=== PATIENT | female | born 2000 | race Caucasian/White ===

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

== ENCOUNTER 2022-04-18 10:29 | Emergency (ER) | payer OTHER ==
[2022-04-18 10:44] VITALS: BP 145/88
[2022-04-18 10:55] LABS: RAPID STREP SCREEN Negative (Negative)
--- NOTE | 2022-04-18 10:58 | ED Physician Documentation ---
PD HPI URI - Stated complaint Stated Complaint: THROAT PX - Chief complaint Chief Complaint: Heent - History obtained from History obtained from: Patient - History of Present Illness Timing - onset: How many weeks ago (has had congestion and cough with fevers for past 2 weeks and Dx with COVID. She was improving with much less symptoms the past 4-5 days, and now abruptly worsening swelling, soreness, exudate of tonsils.) Timing duration: Days Timing details: Gradual onset Associated symptoms: Fever, Nasal congestion, Sore throat, Swollen nodes. No: Ear pain, Hemoptysis, Chest pain Contributing factors: No: Sick contact Similar symptoms before: Diagnosis (prior strep tonsils years ago, not recent.) Review of Systems Constitutional: reports: Fever, Myalgias Nose: reports: Rhinorrhea / runny nose, Congestion (improving since 2 weeks ago) Throat: reports: Sore throat, Swollen tonsils (the past 2 days worsening) Respiratory: reports: Cough (improving) Skin: denies: Rash Neurologic: denies: Focal weakness, Numbness, Altered mental status, Headache PD PAST MEDICAL HISTORY - Past Medical History Cardiovascular: None Respiratory: None Endocrine/Autoimmune: None - Past Surgical History Past Surgical History: No - Present Medications Home Medications: Ambulatory Orders Medication Instructions Recorded Confirmed Penicillin V Potassium 500 mg PO Q6HR 7 Days #28 tablet 04/18/22 dexAMETHasone [Decadron] 4 mg PO DAILY #5 tablet 04/18/22 - Allergies Allergies/Adverse Reactions: Allergies Allergy/AdvReac Type Severity Reaction Status Date / Time No Known Drug Allergies Allergy Verified 04/18/22 10:41 - Social History Does the pt smoke?: No Smoking Status: Never smoker Does the pt drink ETOH?: No Does the pt have substance abuse?: No - Immunizations Immunizations are current?: Yes - POLST Patient has POLST: No PD ED PE NORMAL - Vitals Vital signs reviewed: Yes - General General: Alert and oriented X 3, No acute distress, Well developed/nourished - HEENT HEENT: No: Pharynx benign (both tonsils with swelling and redness, exudate c/w likely strep. ) - Neck Neck: Supple, no meningeal sign, Other (anterior nodes bilaterally. ) - Cardiac Cardiac: No murmur - Respiratory Respiratory: Clear bilaterally Results - Vitals Vitals: Vital Signs - 24 hr 04/18/22 10:40 Temperature 36.6 C Heart Rate 88 Respiratory 16 Rate Blood Pressure 145/88 H O2 Saturation 100 Oxygen O2 Source Room air - Labs Labs: Laboratory Tests 04/18/22 10:45 Group A Strep Rapid Negative PD Medical Decision Making - ED course Complexity details: reviewed results (rapid strep negative, but very clnically suspicious for strep, with recent URI, and now exudative tonsillitis. ), considered differential, d/w patient Departure - Departure Disposition: 01 Home, Self Care Clinical Impression: Exudative tonsillitis Condition: Stable Record reviewed to determine appropriate education?: Yes Instructions: ED Strep Pharyngitis Poss Prescriptions: Penicillin V Potassium 500 mg PO Q6HR 7 Days #28 tablet dexAMETHasone [Decadron] 4 mg PO DAILY #5 tablet Comments: Your rapid strep test is negative but the throat culture will take a day or 2 for the results. This looks very likely to be bacterial tonsil infection subsequent to your recent viral illness. As such I would treat it with p enicillin 4 times daily for the next week as a think this will be a bacterial infection. We can also treat with Decadron steroid anti-inflammatory for the next several days to help with the symptoms and swelling. Benadryl liquid can be useful to swish and swallow to help with some of the discomfort and mucus and phlegm. Tylenol if needed for fevers or pains. I would anticipate improvement over the next several days and resolved over 3 to 5 days. I sent your prescriptions to [facility] pharmacy. Discharge Date/Time: 04/18/22 11:31
[2022-04-18] MEDS ORDERED: CHERRY SYRUP 10 ML UDC PO ONE (11:13)
[2022-04-18] MEDS ORDERED: DEXAMETHASONE 10 MG/ML VIAL PO STA (11:13)
[2022-04-18] MEDS ORDERED: diphenhydrAMINE ELIXIR 25 MG/10 ML UDC PO STA (11:13)
[2022-04-18] MEDS ORDERED: ACETAMINOPHEN 325 MG TABLET PO STA (11:13)
[2022-04-18] MEDS ORDERED: PENICILLIN VK 250 MG TABLET PO STA (11:13)
== END 2022-04-18 11:31 | disposition home or self-care (01) ==
LOC: ED 10:29
DX: J03.90 Acute tonsillitis, unspecified (principal); Z86.16 Personal history of COVID-19
CPT/HCPCS: 87070; 87430; 99283; A9270

== ENCOUNTER 2022-04-21 20:37 | Emergency (ER) | payer OTHER ==
[2022-04-21] MEDS ORDERED: MECLIZINE 12.5 MG TABLET PO STA (20:56)
--- NOTE | 2022-04-21 20:57 | ED Physician Documentation ---
History of Present Illness - Stated complaint Stated Complaint: NECK PX - Chief complaint Chief Complaint: Heent - Additonal information Additional information: 21-year-old female presents to the emergency department for evaluation of neck pain, feeling lightheaded and dizzy and a mild headache. Was seen in this emergency department on 18 April for sore throat. Started presumptively on antibiotics and steroids. Throat culture ultimately showed normal mert. She continues to take both the steroids and the antibiotics. She has had no fevers. Pt reports to me that she had tested + for COVID 19 about 2 weeks ago She states that when she turns her head or climb stairs she feels lightheaded and dizzy sometimes like the room is spinning. She is denying chest pain or shortness of air. She has also had a mild headache. Occasionally patient has had a ringing in her left ear. Patient denies any history of hypertension or diabetes. She vapes but denies tobacco otherwise. Denies illicit drug use. Review of Systems Constitutional: denies: Fever, Chills Ears: reports: Tinnitus/ringing. denies: Loss of hearing, Ear pain, Drainage/discharge Nose: reports: Reviewed and negative Cardiac: reports: Reviewed and negative Respiratory: reports: Reviewed and negative GI: reports: Reviewed and negative Neurologic: reports: Headache, Other (Dizzy). denies: Head injury, LOC PD PAST MEDICAL HISTORY - Past Medical History Cardiovascular: None Respiratory: None Endocrine/Autoimmune: None - Past Surgical History Past Surgical History: No - Present Medications Home Medications: Ambulatory Orders Medication Instructions Recorded Confirmed Penicillin V Potassium 500 mg PO Q6HR 7 Days #28 tablet 04/18/22 04/21/22 dexAMETHasone [Decadron] 4 mg PO DAILY #5 tablet 04/18/22 04/21/22 - Allergies Allergies/Adverse Reactions: Allergies Allergy/AdvReac Type Severity Reaction Status Date / Time No Known Drug Allergies Allergy Verified 04/21/22 20:48 - Social History Does the pt smoke?: No Smoking Status: Never smoker Does the pt drink ETOH?: No Does the pt have substance abuse?: No - Immunizations Immunizations are current?: Yes - POLST Patient has POLST: No PD ED PE NORMAL - General General: Alert and oriented X 3, No acute distress, Well developed/nourished (Obese) - HEENT HEENT: Atraumatic, Moist mucous membranes, Pharynx benign - Neck Neck: Supple, no meningeal sign, No adenopathy, Other (Full range of motion of neck in all planes with no tenderness elicited.) - Cardiac Cardiac: RRR, No murmur, Strong equal pulses - Respiratory Respiratory: No respiratory distress, Clear bilaterally - Abdomen Abdomen: Normal bowel sounds, Soft - Derm Derm: Normal color, Warm and dry, No rash - Extremities Extremities: No deformity - Neuro Neuro: Alert and oriented X 3, 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 Normal finger-nose, normal heel toe and normal gait.), Other (Patient reported brief dizziness that worsened when she went from sitting to laying position and with turning head to the right. No dizziness with left head turn) Eye Opening: Spontaneous Motor: Obeys Commands Verbal: Oriented GCS Score: 15 Results - Vitals Vitals: Vital Signs - 24 hr 04/21/22 04/21/22 20:40 20:48 Temperature 36.9 C Heart Rate 90 Respiratory 17 17 Rate Blood Pressure 153/108 H O2 Saturation 100 Oxygen O2 Source Room air - EKG (time done) 2104 Rate: Rate (enter#) (72) Rhythm: NSR [place]: Normal Intervals: Normal [place] QRS: Normal Ischemia: Normal ST segments Compare to prior EKG: Old EKG unavailable Computer interpretation: Agree with computer PD Medical Decision Making - ED course Complexity details: reviewed results, considered differential, d/w patient, d/w family ED course: This is a very well-appearing 21-year-old female that presents to the emergency department for evaluation mostly for dizziness which she reports is worse when climbing stairs as well as changing positions and turning her head to the right. The symptoms follow a recent diagnosis of COVID-19 about 2 weeks ago. She was also seen in this emergency department 3 days ago for sore throat. At that time the strep obtained rapidly was negative and the culture ultimately grew normal oral mert. However the patient was started on a 5-day course of prednisone as well as antibiotics. On presentation here to the emergency department we are able to induce some very mild vertigo when she goes from a sitting to supine position as well as when she turns her head to the right. She has had no chest pain or shortness of air. Her neurological exam was normal. She had normal cerebellar exam. Her NIHSS is 0. Clinically history and exam is not consistent with a central etiology for vertigo. We did obtain an EKG that was entirely normal for age. We also checked orthostatics that were negative though we do note modest hypertension. The patient reports she has whitecoat syndrome and checks her blood pressures at home and finds that they are normal. Given the lack of chest pain or shortness of air and unremarkable cardiopulmonary auscultation I deferred x-ray imaging. I have low suspicion for ACS given age. At this time I suspect that the cause of the dizziness may be multifactorial related to recent COVID-19 infection or even secondary to mild inner ear dysfunction given the position allergy of it. This could also be exacerbated by steroids. Given that her throat pain is fully abated, the culture was negative I am advising the patient to discontinue her steroids and antibiotics at this time. She was administered meclizine orally here in the emergency department. We will make the recommendation for meclizine at home. We also discussed the Ron maneuver which she may find beneficial. Patient will continue to follow with a primary care provider. We discussed the usual emergent return precautions for worsening symptoms. Departure - Departure Disposition: Home, Self Care Clinical Impression: Vertigo, Elevated blood pressure reading Condition: Stable Record reviewed to determine appropriate education?: Yes Instructions: Meclizine, ED Vertigo Unspecified Comments: You came to the emergency department because you have been having some dizziness that gets worse especially after ambulating and when changing positions. You also had a minor amount of ringing in your left ear. You did have COVID-19 about 2 weeks ago and when you were seen in the emergency department 3 days ago you had a sore throat. Your strep culture grew normal oral mert. At this time you can stop taking the antibiotics. As we discussed at the bedside I suspect the cause of your dizziness may be some mild inner ear dysfunction that could be related to the recent COVID infection. Please use the handout and practice the Ron maneuver at home starting with your head turned to the left side. It is also possible that some of the worsening dizziness could be due to simply to the steroids that you are on as they can cause patients to be anxious, hyper tensive as well as dizzy. I do recommend that you stop the steroids for now. Your EKG here was normal. We did check your blood pressures in various positions and you do not develop a low blood pressure with position changes but again you do get mildly dizzy when changing positions. This speaks to some inner ear dysfunction as a cause of dizziness. In general I expect that your symptoms are going to simply get better over the next week or so. You can buy Dramamine/meclizine [id number] at the pharmacy and take 2-3 times a day as needed for dizziness. This can also help with some nausea. If you find that your symptoms are worsening, you have any slurred speech, facial droop, cannot walk normally or feel that your symptoms are not improving then please return immediately to the ER for second evaluation
[2022-04-21 21:12] VITALS: BP 140/86
== END 2022-04-21 21:23 | disposition home or self-care (01) ==
LOC: ED 20:37
DX: R42 Dizziness and giddiness (principal); R03.0 Elevated blood-pressure reading, without diagnosis of hypertension
CPT/HCPCS: 93005; 99283; 99284; A9270